=== PATIENT | female | born 1945 | race Caucasian/White ===

== ENCOUNTER 2020-08-28 12:34 | Outpatient (CLI) | payer MEDICARE | END 2020-08-28 12:35 | disposition home or self-care (01) | LOC: SCSMRI 12:34 | PROVIDERS: ATTEND Orthopaedic Surgery | DX: M24.812 Other specific joint derangements of left shoulder, not elsewhere classified (principal); M75.82 Other shoulder lesions, left shoulder; M19.012 Primary osteoarthritis, left shoulder ==

== ENCOUNTER 2023-02-17 12:37 | Outpatient (CLI) | payer MEDICARE, BC ==
[2023-02-17 14:17] LABS: Hematocrit 39.1 % (34.9-44.5); Hemoglobin 12.6 g/dL (12.0-15.5); Mean Corpuscular HGB CONC 32.2 g/dL (32.0-36.0); Mean Corpuscular Hemoglobin 30.1 pg (27.0-33.0); Mean Corpuscular Volume 93.3 fl (81.6-98.3); Mean Platelet Volume 10.3 fl (7.4-10.4); Platelet Count 371 10x3/uL (150-450); Red Blood Cell (RBC) Count 4.19 10x6/uL (3.90-5.03)
[2023-02-17 14:22] LABS: Anion Gap 17 mmol/L (10-20); BUN (Urea Nitrogen) 25 mg/dL (9.8-20.1); Calc. Creatinine Clearance 0 mL/min (70-130); Calcium 9.9 mg/dL (7.8-10.44); Carbon Dioxide 21 mmol/L (23-31); Chloride 104 mmol/L (98-107); Estimated GFR 46; Glucose 79 mg/dL (83-110); Potassium 4.9 mmol/L (3.5-5.1); Sodium 137 mmol/L (136-145)
== END 2023-02-17 12:38 | disposition home or self-care (01) ==
LOC: LABBT 12:37
PROVIDERS: ATTEND Orthopaedic Surgery
DX: Z01.818 Encounter for other preprocedural examination (principal); S52.502A Unspecified fracture of the lower end of left radius, initial encounter for closed fracture
CPT/HCPCS: 80048; 85027; 93005; 93010

== ENCOUNTER 2023-02-18 10:47 | Observation (INO) | payer BC, MEDICARE ==
[2023-02-17 13:23] VITALS: BMI 27.8
[2023-02-18] MEDS ORDERED: Ropivacaine 0.5% HCl/PF (150 MG/30 ML VIAL) ONE (11:33)
[2023-02-18] MEDS ORDERED: fentaNYL 50 mcg/mL 1 mL Vial ONE ×4 (11:33→14:38)
[2023-02-18] MEDS ORDERED: CEFAZOLIN 2 GM VIAL ONE (12:09)
[2023-02-18] MEDS ORDERED: Sodium Chloride 0.9% 100 ML ONE (12:09)
[2023-02-18] MEDS ORDERED: PROPOFOL 200 MG/20 ML VIAL ONE (12:51)
[2023-02-18] MEDS ORDERED: Lidocaine 1% PF 5 ML VIAL ONE (12:51)
[2023-02-18] MEDS ORDERED: Ondansetron PF 4 MG/2 ML Vial ONE (12:51)
[2023-02-18] MEDS ORDERED: Morphine 2 MG/ML VIAL ONE (15:18)
[2023-02-18] MEDS ORDERED: HYDROcodone/Acetaminophen 5/325 mg Tablet ONE (15:35)
[2023-02-18] MEDS ORDERED: HYDROmorphone 0.5 MG/0.5 ML SYRINGE ONE (15:50)
[2023-02-18] MEDS ORDERED: Ondansetron PF 4 MG/2 ML Vial IVP PRN ×2 (16:24→17:00)
[2023-02-18] MEDS ORDERED: diphenhydrAMINE 25 MG CAP PO PRN (17:00)
[2023-02-18] MEDS ORDERED: Promethazine HCl 25 MG/ML VIAL IM PRN (17:00)
[2023-02-18] MEDS ORDERED: Morphine Sulfate 100 MG in Dextrose 5% in Water 98 ML IV SCH (17:00)
[2023-02-18] MEDS ORDERED: Naloxone HCl 0.4 mg/ml Vial IV PRN (17:00)
[2023-02-18] MEDS ORDERED: Zolpidem Tartrate 5 MG TAB PO PRN (17:00)
[2023-02-18] MEDS ORDERED: tiZANidine HCl 4 MG TAB PO PRN (18:13)
[2023-02-18] MEDS ORDERED: HYDROcodone/Acetaminophen 10/325 mg Tablet PO PRN (18:19)
[2023-02-18] MEDS: diphenhydrAMINE 50 MG/ML VIAL IM/IV PRN (19:30)
[2023-02-18] MEDS: Gabapentin 300 MG CAP PO SCH (20:42)
[2023-02-18] MEDS ORDERED: Cyclobenzaprine 10 MG TAB PO SCH (21:00)
[2023-02-18] MEDS ORDERED: Fenofibrate Nanocrystallized 145 MG TAB PO SCH (21:00)
[2023-02-18] MEDS ORDERED: Aspirin Chewable 81 MG TAB PO SCH (21:00)
[2023-02-18] MEDS ORDERED: Levothyroxine Sodium 50 MCG TAB PO SCH (22:00)
[2023-02-19] MEDS: diphenhydrAMINE 50 MG/ML VIAL IM/IV PRN (05:54)
[2023-02-19] MEDS ORDERED: Losartan 25 MG TAB PO SCH (09:00)
[2023-02-19] MEDS ORDERED: HYDROcodone/Acetaminophen 7.5/325 mg Tablet PO PRN ×2 (09:16)
[2023-02-19] MEDS ORDERED: Morphine 2 MG/ML VIAL SLOW IVP PRN (09:17)
[2023-02-19] MEDS: Gabapentin 300 MG CAP PO SCH (10:02)
[2023-02-19 12:34] VITALS: BP 115/72; TEMP 99.2
[2023-02-19] MEDS ORDERED: Levothyroxine Sodium 75 MCG TAB PO SCH (22:00)
== END 2023-02-19 14:30 | disposition home or self-care (01) ==
LOC: SDC 10:47 → SURG B 17:14
PROVIDERS: ADMIT Orthopaedic Surgery; ATTEND Orthopaedic Surgery
PROC: 0PSJ04Z Reposition Left Radius with Internal Fixation Device, Open Approach (ICD-10-PCS; principal; 2023-02-18)
DX: S52.502A Unspecified fracture of the lower end of left radius, initial encounter for closed fracture (principal); E78.00 Pure hypercholesterolemia, unspecified; I10 Essential (primary) hypertension; E07.9 Disorder of thyroid, unspecified; Z90.710 Acquired absence of both cervix and uterus; Z98.890 Other specified postprocedural states; Z98.49 Cataract extraction status, unspecified eye; Z79.899 Other long term (current) drug therapy; Z79.82 Long term (current) use of aspirin; Z79.890 Hormone replacement therapy; W19.XXXA Unspecified fall, initial encounter
CPT/HCPCS: 25608; 73100; 97110; 97116; C1713 ×6; J3010; J1170; J1200; J2270; J2272; J2405; J2704; J2795; J3490; J7070